=== PATIENT | male | born 1975 | race Two or more races ===

== ENCOUNTER 2025-06-09 08:41 | Outpatient (AMB) | payer OTHER, SELFPAY ==
[2025-06-09 09:06] VITALS: BP 122/72; PULSE 71; RESP 18; TEMP 36.6; O2SAT 99; BMI 30.4
--- NOTE | 2025-06-09 09:06 | PD.ORTHCLVIS ---
Vital signs 06/09/25 09:06 Height 1.75 m Height Method Stated Weight 93.582 kg Weight Measurement Method Standing Scale BMI 30.4 BP 122/72 Blood Pressure Source Automatic Cuff Blood Pressure Location Right Upper Arm Position Sitting Respiration 18 Pulse 71 Pulse Source Monitor Temp 97.8 F Temp Source Temporal Artery Scan Pulse Oximetry (%) 99 Oxygen Delivery Method Room Air Med/Allergies Allergies & Medications Allergies No Known Allergies Allergy (Verified 06/09/25 09:07) Medication Reconciliation atorvastatin 10 mg tablet 10 mg PO QDAY 07/08/22 [History Confirmed 06/09/25] benazepril 10 mg tablet 20 mg PO QDAY 07/08/22 [History Confirmed 06/09/25] pantoprazole 20 mg tablet,delayed release 20 mg PO QDAY 07/08/22 [History Confirmed 06/09/25] semaglutide 7 mg tablet (Rybelsus) 7 mg PO DAILY 10/29/22 [History Confirmed 06/09/25] sitagliptin phosphate 50 mg-metformin 1,000 mg tablet (Janumet) 1 tab PO BID 10/29/22 [History Confirmed 06/09/25] meloxicam 7.5 mg tablet 7.5 mg PO QDAY #45 tabs 06/09/25 [Rx] Exam Exam Patient is in no acute distress and is cooperative with the examination today. Breathing is nonlabored. Patient has a normal mood and affect. Bilateral extremities were evaluated and demonstrates sensation intact to light touch. Palpable pedal pulses are present. No significant edema is present. Bilateral hips were examined. The patient has no pain with log roll of the hips. Internal rotation to 30 degrees and external rotation to 30 degrees is painless. Negative FADIR. Right knee was examined today. The right knee is in reasonable alignment. Range of motion from 0-120 degrees. Knee is stable to varus and valgus as well as AP translation with <5mm. Patient has a negative McMurrays. There is no pain with patellofemoral compression and no crepitus noted. The knee is nontender to palpation. Left knee was examined today. Left knee is tender to palpation medially approximately 6 cm below the joint line. He does have engorged veins there and it feels like is either a cyst or pain. It is mobile. . range of motion from 0-115 degrees. Knee is stable to varus and valgus as well as AP translation with <5mm. Patient has a negative McMurrays. There is no pain with patellofemoral compression and no crepitus noted. The knee is tender to palpation medially over the lumps on his inferior medial aspect of his tibia. X-rays demonstrate mild joint space narrowing Assessment and Plan Problem List (1) Elbow tendinitis: Status: Acute Plan: Patient is a pleasant 49-year-old male with elbow tendinitis of both elbows. 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 In addition, he has small lumps on the inferior medial aspect near his Pez anserine bursa. I do think that this is most likely the veins that are engorged and sclerosed. I would like to get an MRI to better evaluate this as this has been bothering him and has been going on for quite a while. We will see him back after his MRI is done (2) Medial knee pain: Status: Acute Office Procedures GNS Level of Care Nursing/Assessment Patient Status: Established Patient Nursing Assessment/Reassesment: Medication Reconciliation, Update PMH in EMR and Vital Signs Coordination of Care: Complex Care and Chronic Disease 1-5, Education Complex Pt/Fam, Consent,records obtained, informed consent, Lab and Imaging orders, Results/Orders obtained and Staff clarify orders Established Patient Charge Established Patient Point Assignment: 110 Established Patient Point Charge: EP Level 3 (80-115) MA Intake Visit Data Collection New Patient or Established: Established Patient (seen at [facility] within 3 years) Reason for Visit:: KNEE PAIN Seen by Clinical Staff ONLY (RN/MA): No Verbal consent obtained for Telemed visit?: No Colored Liquid Plastic Applier Required: No PCP or OBGYN visit in last 3 months: Yes Hx Now: No Do You Feel Safe at Home: Yes Authorities Contacted: N/A Questionairres Past Medical History Past Medical History Have you ever been diagnosed with any of the following: Neurological Problems Seizures: No Cardiology Problems Hypercholesterolemia: Yes Congestive Heart Failure: No Edema: No Cellulitis: No Hypertension: Yes Varicose Veins: No Respiratory Problems Chronic Obstructive Pulmonary Disease (COPD): No Tuberculosis: No Sleep Apnea: No Smoking: Yes Smoking Cessation Counseling: No Stomache/Intestinal Problems Hepatitis: No Gastroesophageal Reflux Disease: Yes Genital/Urinary Problems Renal Disease: No Endocrine Problems Diabetes Mellitus Type 1: No Diabetes Mellitus Type 2: Yes Other Problems Hospitalization: No Shingles: No Falls: No Blood Transfusions: No Blood Transfusion Reaction: No Anesthesia Reactions: No Chemotherapy: No Radiation Therapy: No MRSA: No Chicken Pox: Yes Measles: No Mumps: No Cancer: No Surgical History Pacemaker: No Subjective Visit Visit for: new patient and knee Immunization / Flu Flu Vaccine in the Last 12 Months: No Flu Vaccine Exclusion Criteria: No Exclusion Criteria History of Present Illness Chief complaint: KNEE PAIN Date of injury / onset of symptoms: MONTHS Aubree is a pleasant 49-year-old male with elbow pain in both elbows as well as left knee pain. This been ongoing for several years. He was found to have biceps tendinitis. He is referred here today for primarily medial knee pain. The pain is approximately in the upper one third of the tibia. He reports he can feel a ball. Personal History Occupation: [employer] Red flag PMH: smoker, cigarettes qd (specify) and BMI BMI Counceling provided: Yes Pain Pain level (0-10): 6 Pain duration: COMES AND GOES Pain location: inside (medial) and anterior Pain quality: sharp and aching Associated signs & symptoms: none Ambulatory data Ambulatory device: none Treatments Improvement with previous injections: No Improvement with PT: No Improvement with NSAIDS: yes (IBUPROFEN) Review of Systems Review of Systems: All systems negative unless otherwise noted in HPI.
== END 2025-06-09 09:39 | disposition home or self-care (01) ==
LOC: HODSRG 08:41
PROVIDERS: PCP Internal Medicine; Referring Provider Internal Medicine; Supervising Provider Orthopaedic Surgery Adult Reconstructive Orthopaedic Surgery; Visit Provider Orthopaedic Surgery Adult Reconstructive Orthopaedic Surgery
DX: M77.8 Other enthesopathies, not elsewhere classified (principal); M25.562 Pain in left knee
CPT/HCPCS: 99213; G0463